=== PATIENT | male | born 1980 | race Two or more races ===

== ENCOUNTER 2024-04-02 05:07 | Inpatient (IN) | payer OTHER ==
[~2024-04-02] VITALS: Ht 170.2 cm; Wt 87.7 kg
[2024-04-02 06:31] LABS: Urine Bacteria None Seen /hpf (None Seen); Urine WBC None Seen /hpf (0 - 3)
[2024-04-02 06:35] LABS: Urine Blood 2+ /uL (Negative); Urine Clarity Clear (Clear); Urine Color Colorless (Yellow); Urine Protein, UAD 1+ (Negative); Urine Specific Gravity 1.006 (1.001-1.035); Urine Urobilinogen Normal (Negative); Urine pH 5.5 (5.0-9.0)
[2024-04-02] MEDS: HYDROcodone-ACET 5/325MG TAB PO ONE (07:01)
[2024-04-02 07:25] LABS: Chloride 105 mmol/L (98-107); Potassium 4.4 mmol/L (3.5-5.1); Sodium 143 mmol/L (136-145)
[2024-04-02 07:26] LABS: Anion Gap 9 (5-15); Basophils # (auto) 0 10 ^3/uL (0-0.2); Basophils % (auto) 0.3 % (0.0-2.0); Carbon Dioxide 29 mmol/L (20-31); Eosinophils # (auto) 0 10 ^3/uL (0-0.8); Eosinophils % (auto) 0.3 % (0.0-7.0); Hematocrit 49.6 % (41.0-53.0); Hemoglobin 16.8 g/dL (13.5-17.5); Lymphocytes # (auto) 2.6 10 ^3/uL (0.4-5.4); Lymphocytes % (auto) 24.7 % (10.0-50.0); Mean Corpuscular Hemoglobin 31.3 pg (28.0-32.0); Mean Corpuscular Hgb Conc. 33.9 g/dL (32.0-36.0); Mean Corpuscular Volume 92.4 fL (80.0-100.0); Monocytes # (auto) 1.2 10 ^3/uL (0-1.3); Monocytes % (auto) 11.1 % (0.0-12.0); Neutrophils # (auto) 6.7 10 ^3/uL (1.6-8.6); Neutrophils % (auto) 63.6 % (37.0-80.0); Nucleated Red Blood Cells % 0.1 %; Platelet Count (auto) 236 10^3/uL (140-450); Red Blood Cells 5.36 10^6/uL (4.5-5.90); Red Cell Distribution Width 12.6 % (11.8-14.3); White Blood Cell 10.5 10^3/uL (4.4-10.8)
[2024-04-02 07:27] LABS: Calcium 10.3 mg/dL (8.7-10.4)
[2024-04-02 07:31] LABS: Glucose 120 mg/dL (74-106)
[2024-04-02 07:32] LABS: BUN/Creatinine Ratio 14.5 (10.0-20.0); Blood Urea Nitrogen 17 mg/dL (9-23)
[2024-04-02] MEDS ORDERED: IBU600T PO (07:55)
[2024-04-02] MEDS ORDERED: TAMS-35 PO (07:55)
[2024-04-02 08:30] VITALS: PULSE 69; RESP 16
[2024-04-02] MEDS: KETOROLAC TROMETH 30 MG/ML 1ML VIAL IV ONE (08:33)
[2024-04-02] MEDS: TAMSULOSIN HYDROCHLORIDE 0.4 MG CAP PO ONE (08:33)
[2024-04-02] MEDS: SODIUM CHLORIDE 0.9% 1,000 ML IV ONE (08:33)
[2024-04-02] MEDS ORDERED: KETOROLAC TROMETH 30 MG/ML 1ML VIAL IV PRN (09:30)
[2024-04-02] MEDS ORDERED: HYDROcodone-ACET 5/325MG TAB PO PRN (09:30)
[2024-04-02 11:14] VITALS: BP 131/63; PULSE 53; RESP 16; TEMP 97.6; O2SAT 97
[2024-04-02] MEDS ORDERED: IBUP-1456 PO (12:07)
[2024-04-02] MEDS ORDERED: HYDR-4902 PO (12:07)
[2024-04-02 13:35] VITALS: TEMP 36.4
== END 2024-04-02 14:05 | disposition home or self-care (01) | DRG 694 ==
LOC: ER 05:07 → OVERFLOW 09:24 → WEST WING 10:45
PROVIDERS: ADMIT Registered Nurse General Practice; ATTEND Internal Medicine
DX: N20.0 Calculus of kidney (principal); F17.210 Nicotine dependence, cigarettes, uncomplicated; M79.18 Myalgia, other site
CPT/HCPCS: 36415; 74176; 80048; 81001; 85025; G0378; J1885